=== PATIENT | male | born 1990 | race Caucasian/White ===

== ENCOUNTER 2018-10-24 10:46 | Emergency (ER) | payer OTHER ==
--- NOTE | 2018-10-24 11:25 | ED ---
GI/ HPI - HPI Summary HPI Summary: This pt is a 27 y/o male presenting [place] [facility]/o right groin pain x2 days. Pt reports he went to [facility] and was referred to the ED to rule out testicular torsion. He states his right groin pain has been constant and nonradiating since a couple of days ago. Pt denies any trauma to groin. He denies penile discharge, dysuria, hematuria, nausea, vomiting. Denies hx of STDs. Denies any PMHx. - History of Current Complaint Chief Complaint: EDUrogenitalProblems Time Seen by Provider: 10/24/18 11:08 Stated Complaint: GROIN PAIN Hx Obtained From: Patient Onset/Duration: Started Days Ago, Still Present Timing: Lasting Days Current Severity: Mild Pain Intensity: 3 Location of Pain: Groin - right Associated Signs and Symptoms: Negative: Nausea, Vomiting, Discharge, Fever, Hematuria, Dysuria, Abdominal Pain Additional Signs & Symptoms: Negative: STD Aggravating Factor(s): Nothing Alleviating Factor(s): Nothing - Allergy/Home Medications Allergies/Adverse Reactions: Allergies Allergy/AdvReac Type Severity Reaction Status Date / Time No Known Allergies Allergy Verified 10/24/18 10:52 Home Medications: Home Medications NK [No Home Medications Reported] 10/24/18 [History Confirmed 10/24/18] PMH/Surg Hx/FS Hx/Imm Hx Endocrine/Hematology History: Denies: Hx Diabetes Cardiovascular History: Denies: Hx Hypertension - Surgical History Surgery Procedure, Year, and Place: None Infectious Disease History: No Infectious Disease History: Denies: Traveled Outside the [place] in Last 30 Days - Family History Family History: Grandfather with prostate and skin CA - Social History Alcohol Use: Occasionally Substance Use Type: Reports: None Smoking Status (MU): Former Smoker Review of Systems Negative: Fever, Chills Negative: Chest Pain Negative: Shortness Of Breath Negative: Abdominal Pain Genitourinary: Other - POS: right groin pain Negative: dysuria, discharge, hematuria All Other Systems Reviewed And Are Negative: Yes Physical Exam - Summary Physical Exam Summary: VITAL SIGNS: Reviewed. GENERAL: Patient is a well-developed and nourished male who is lying comfortable in the stretcher. Patient is not in any acute respiratory distress. HEAD AND FACE: No signs of trauma. No ecchymosis, hematomas or skull depressions. No sinus tenderness. EYES: PERRLA, EOMI x 2, No injected conjunctiva, no nystagmus. EARS: Hearing grossly intact. Ear canals and tympanic membranes are within normal limits. MOUTH: Oropharynx within normal limits. NECK: Supple, trachea is midline, no adenopathy, no JVD, no carotid bruit, no c- spine tenderness, neck with full ROM. CHEST: Symmetric, no tenderness at palpation LUNGS: Clear to auscultation bilaterally. No wheezing or crackles. CVS: Regular rate and rhythm, S1 and S2 present, no murmurs or gallops appreciated. ABDOMEN: Soft, non-tender. No signs of distention. No rebound, no guarding, and no masses palpated. Bowel sounds are normal. : Tenderness in the right inguinal area. No lymphadenopathy. Uncircumcised penis, both testicles are descended. No masses are appreciated. Positive cremasteric reflex. EXTREMITIES: FROM in all major joints, no edema, no cyanosis or clubbing. NEURO: Alert and oriented x 3. No acute neurological deficits. Speech is normal and follows commands. SKIN: Dry and warm Triage Information Reviewed: Yes Vital Signs On Initial Exam: Initial Vitals Temp Pulse Resp BP Pulse Ox 99.2 F 83 18 145/95 98 10/24/18 10:49 10/24/18 10:49 10/24/18 10:49 10/24/18 10:49 10/24/18 10:49 Vital Signs Reviewed: Yes Diagnostics - Vital Signs Vital Signs Temp Pulse Resp BP Pulse Ox 10/24/18 10:49 99.2 F 83 18 145/95 98 - Laboratory Result Diagrams: 10/24/18 11:38 10/24/18 11:38 Lab Statement: Any lab studies that have been ordered have been reviewed, and results considered in the medical decision making process. GIGU Course/Dx - Course Assessment/Plan: Patient is a 27-year-old male with right testicular pain. Physical exam was found to have a normal testicles without any masses, normal cremasteric reflex, and no penile discharge. Test results without any significant abnormality except for glucose of 103. Urinalysis is negative for UTI. The GC and chlamydia is pending and he will follow up the results with the primary care physician. Testicular ultrasound impression: Small bilateral hydrocele is. No evidence for testicular torsion or epididymitis. In the ED course the patient was given Toradol for the pain. I will discharge the patient home with follow-up with urology and primary care physician. Patient will take ibuprofen for pain. - Diagnoses Provider Diagnoses: Hydrocele in adult Discharge - Sign-Out/Discharge Documenting (check all that apply): Patient Departure Patient Received Moderate/Deep Sedation with Procedure: Yes - Discharge Plan Condition: Stable Disposition: HOME Patient Education Materials: Hydrocele (ED), Testicle Pain (ED) Referrals: Dimitri Flores NP [Primary Care Provider] - Artie Fowler MD [Medical Doctor] - Additional Instructions: Increase your hydration. Take ibuprofen for pain. Return to the emergency department if the symptoms worsen. The patient understands and agrees. - Billing Disposition and Condition Condition: STABLE Disposition: Home - Attestation Statements Document Initiated by Scribe: Yes Documenting Scribe: Nunu Page Provider For Whom Scribe is Documenting (Include Credential): Bernardo Hernandez MD Scribe Attestation: INunu, scribed for Bernardo Hernandez MD on 10/24/18 at 1812. Scribe Documentation Reviewed: Yes Provider Attestation: The documentation as recorded by the uNnu godinez accurately reflects the service I personally performed and the decisions made by , Bernardo Hernandez MD Status of Scribe Document: Viewed
[2018-10-24 11:48] LABS: ABS Basophils 0.1 10^3/ul (0-0.2); ABS Eosinophils 0.1 10^3/ul (0-0.6); ABS Lymphocytes 0.8 10^3/ul (1.0-4.8); ABS Monocytes 0.3 10^3/ul (0-0.8); ABS Neutrophils 3.1 10^3/ul (1.5-7.7); ABS Nucleated RBC 0 10^3/ul; Eosinophil % 1.9 %; Hematocrit 45 % (42-52); Hemoglobin 15.5 g/dl (14.0-18.0); Lymphocyte % 17.6 %; Mean Corpuscular HGB Conc 35 g/dl (31-36); Mean Corpuscular Hemoglobin 30 pg (27-31); Mean Corpuscular Volume 86 fL (80-94); Mean Platelet Volume 9.1 fL (7.4-10.4); Nucleated Red Blood Cells % 0.1; Platelet Count 236 10^3/ul (150-450); Red Blood Count 5.21 10^6/ul (4.00-5.40); Red Cell Distribution Width 13 % (10.5-15); White Blood Count 4.4 10^3/ul (3.5-10.8)
[2018-10-24 11:52] LABS: Urine Appearance Clear; Urine Bilirubin Negative (Negative); Urine Blood Negative (Negative); Urine Color Straw; Urine Glucose Negative (Negative); Urine Ketones Negative (Negative); Urine Nitrite Negative (Negative); Urine Protein Negative (Negative); Urine Specific Gravity 1.002 (1.010-1.030); Urine Urobilinogen Negative (Negative)
[2018-10-24 12:06] LABS: ALT 19 U/L (7-52); AST 18 U/L (13-39); Albumin 4.9 g/dL (3.2-5.2); Albumin/Globulin Ratio 1.9 (1-3); Alkaline Phosphatase 99 U/L (34-104); Anion Gap 6 mmol/L (2-11); BUN/Creatinine Ratio 7.1 (8-20); Blood Urea Nitrogen 7 mg/dL (6-24); C Reactive Protein < 1.00 mg/L (<8.01); CO2 Carbon Dioxide 27 mmol/L (22-32); Chloride 106 mmol/L (101-111); EGFR African American 110.6 (>60); EGFR Non-African American 91.4 (>60); Globulin 2.6 g/dL (2-4); Glucose 103 mg/dL (70-100); Potassium 3.9 mmol/L (3.5-5.0); Sodium 139 mmol/L (135-145); Total Protein 7.5 g/dL (6.4-8.9)
[2018-10-24] MEDS ORDERED: Ketorolac INJ* 30 MG/ML 1 ML VIAL IV PUSH ONE (13:26)
[2018-10-24] MEDS ORDERED: Ibuprofen TAB* 600 MG PO ONE (13:32)
[2018-10-24 13:43] VITALS: BP 153/100
[2018-10-25 12:03] LABS: Neisseria gonorrhoeae (GC) RNA Negative (Negative)
== END 2018-10-24 13:41 | disposition home or self-care (01) ==
LOC: ED 10:46
DX: N43.3 Hydrocele, unspecified (principal); Z87.891 Personal history of nicotine dependence
CPT/HCPCS: 36415; 76870; 80053; 81003; 85025; 86140; 87491; 87591; 96374; 99283; A9270-GY; J1885